=== PATIENT | male | born 1980 | race Two or more races ===

== ENCOUNTER 2025-02-20 10:18 | Emergency (ER) | payer BC ==
[~2025-02-20] VITALS: Ht 170.2 cm; Wt 143.8 kg
[2025-02-20 10:25] VITALS: BP 133/97; TEMP 98; O2SAT 97
[2025-02-20] MEDS ORDERED: ACET-868 PO (21:55)
== END 2025-02-20 11:57 | disposition left against medical advice (07) ==
LOC: ER 10:33
DX: Z04.1 Encounter for examination and observation following transport accident (principal); Z53.21 Procedure and treatment not carried out due to patient leaving prior to being seen by health care provider

== ENCOUNTER 2025-02-20 19:32 | Emergency (ER) | payer BC ==
[~2025-02-20] VITALS: Ht 172.7 cm; Wt 140.6 kg
[2025-02-20] MEDS ORDERED: ACETAMINOPHEN ES 500 MG TABLET ONE (20:52)
[2025-02-20] MEDS: IV NS 0.9% 1,000 ML BAG IV ONE (21:00)
[2025-02-20] MEDS: ACETAMINOPHEN ES 500 MG TABLET PO ONE (21:01)
[2025-02-20 21:04] LABS: PLATELET COUNT (AUTO) 221 K/uL (150-450); RED BLOOD CELL COUNT(AUTO) 4.57 MIL/uL (4.5-6.0); RED CELL DISTRIBUTION WIDTH 14.7 % (11.5-15.0); WHITE BLOOD COUNT (AUTO) 8.5 K/uL (4.3-11.0)
[2025-02-20 21:11] LABS: CALCIUM, SERUM 8.6 mg/dL (8.5-10.1); CREATININE 1.0 mg/dL (0.6-1.3); SODIUM SERUM 143.0 mmol/L (136-145); UREA NITROGEN, BLOOD 14.0 mg/dL (7-18)
[2025-02-20 21:33] LABS: INR 0.97 (0.91-1.10)
[2025-02-20] MEDS ORDERED: IOHEXOL-300 100 ML VIAL IV ONE (21:37)
[2025-02-20] MEDS ORDERED: IV NS 0.9% 250 ML IV ONE (21:37)
[2025-02-20] MEDS ORDERED: ACET-868 PO (21:55)
[2025-02-21 00:18] VITALS: BP 122/70; TEMP 98; O2SAT 97
== END 2025-02-21 00:18 | disposition home or self-care (01) ==
LOC: EDUNIT# 19:32 → ER 19:39
DX: K62.5 Hemorrhage of anus and rectum (principal); R51.9 Headache, unspecified; R10.30 Lower abdominal pain, unspecified; I10 Essential (primary) hypertension; G47.30 Sleep apnea, unspecified; V89.0XXA Person injured in unspecified motor-vehicle accident, nontraffic, initial encounter; Y93.89 Activity, other specified; Y92.410 Unspecified street and highway as the place of occurrence of the external cause; Y99.9 Unspecified external cause status
CPT/HCPCS: 99285; 71260; 96360; 70450; 74177; 85025; 80048; 36415; 85730; 86850; J7030; J7050; Q9967